=== PATIENT | male | born 2005 | race Caucasian/White ===

== ENCOUNTER 2025-01-06 12:18 | Emergency (ER) | payer OTHER ==
[~2025-01-06] VITALS: Ht 175.3 cm; Wt 70.3 kg
[2025-01-06 12:55] VITALS: TEMP 98.3
[2025-01-06 15:54] VITALS: BP 128/72; O2SAT 98
== END 2025-01-06 15:56 | disposition home or self-care (01) ==
LOC: ER 12:25
DX: H55.89 Other irregular eye movements (principal)
CPT/HCPCS: 70450-TC